=== PATIENT | male | born 1960 | race African-American/Black ===

== ENCOUNTER 2017-04-27 12:41 | Emergency (ER) | payer OTHER ==
[2017-04-27 12:45] VITALS: BP 158/108; BMI 39.1
[2017-04-27] MEDS ORDERED: CATAPRES TAB 0.1 MG ONE (13:35)
--- NOTE | 2017-04-27 13:55 | DR.GENAD ---
HPI - PCP Primary Care Physician: YUNIOR - Complaint/Symptoms Chief Complaint:: PATIENT STATED THAT HE HAS BEEN HAVING ABD. AND DARK STOOLS FOR 2 WEEKS. - Source History Provided: Patient - Mode of Arrival Mode of Arrival: Ambulatory - Timing Onset of Chief Complaint: 04/13/17 PMH - PMH Past Medical History: Yes Past Medical History: Hypertension Past Surgical History: Yes Surgical History: Abdominal Surgery, Ortho Surgery - Family History History of Family Medical Conditions: Yes Family Medical History: Cancer, Hypertension - Social History Does patient currently use any type of tobacco product: No Have you used tobacco products in the last 12 months: No Type of Tobacco Use: None Does any household member use tobacco: No Alcohol Use: None Do you use any recreational Drugs:: No Lives With: Family Lives Where: Home - infectious screening In the last 2 months have you had wt loss of >10#?: NO Have you had fever, night sweats or hemotysis?: No Have you traveled outside the country in the last 6 months?: No Isolation: Standard ROS - Review of Systems Eyes: No Symptoms Reported ENTM: No Symptoms Reported, Hearing Loss Respiratoy: No Symptoms Reported Cardiovascular: No Symptoms Reported Gastrointestinal/Abdominal: Abdominal Pain Genitourinary: No Symptoms Reported Neurological: No Symptoms Reported Musculoskeletal: No Symptoms Reported Integumentary: No Symptoms Reported Hematologic/Lymphatic: No Symptoms Reported Endocrine: No Symptoms Reported Psychiatric: No Symptoms Reported All Other Systems: Reviewed and Negative PE - Vital Signs Vitals: Temperature 98.1 F Pulse Rate 84 Respiratory Rate 20 Blood Pressure [Right Arm] 148/86 Blood Pressure [Left Arm] 146/83 Blood Pressure 158/108 O2 Sat by Pulse Oximetry 99 - General General Appearance: Alert, In No Apparent Distress - Head Head Exam: Normal Inspection, Atraumatic - Eyes Eye exam: Normal Appearance, PERRL, EOMI - ENT ENT Exam: Normal Exam External Ear Exam: Normal External Inspection TM/Canal Exam: Bilateral Normal Nose Exam: Normal Nose Exam Mouth Exam: Normal Inspection Throat Exam: Normal Inspection - Neck Neck Exam: Normal Inspection - Chest Chest Inspection: Normal Inspection, Symmetric Chest Wall Rise - Respiratory Respiratory Exam: Normal Lung Sounds Bilat Respiratory Exam: Bilateral Clear to Auscultation - Cardiovascular Cardiovascular Exam: Regular Rate, Normal Rhythm - Abdominal Exam Abdominal Exam: Normal Inspection, Normal Bowel Sounds Abdominal Tenderness: Epigastrium. negative: RUQ, RLQ, LUQ, LLQ, Suprapubic, Diffuse, Mild, Moderate, Severe, Other - Extremities Extremities Exam: Normal Inspection, Full ROM - Back Back Exam: Normal Inspection - Neurologic Neurological Exam: Alert, Oriented X3, CN II-XII Intact - Psychiatric Psychiatric Exam: Normal Affect - Skin Skin Exam: Warm, Dry, Intact - Other Exam Other Exam: Rectum hemocult negative Course - Reevaluation 1st: Improved ROR - Labs Reviewed Laboratory Results Reviewed?: Yes (H pylori positive) Result Diagrams: 04/27/17 15:15 04/27/17 15:15 Laboratory: WBC 6.9 X10^3/uL (3.6-10.0) 04/27/17 15:15 RBC 5.25 X10^6/uL (4.7-6.0) 04/27/17 15:15 Hgb 14.9 g/dL (13.5-18.0) 04/27/17 15:15 Hct 43.8 % (42.0-54.0) 04/27/17 15:15 MCV 83.4 fL (80.0-100.0) 04/27/17 15:15 MCH 28.4 pg (27.0-34.0) 04/27/17 15:15 MCHC 34.1 g/dL (33.0-35.0) 04/27/17 15:15 RDW 13.3 % (11.6-16.5) 04/27/17 15:15 Plt Count 265 X10^3/uL (150.0-450.0) 04/27/17 15:15 MPV 7.2 fL (7.4-11.0) L 04/27/17 15:15 Neut % 56.6 % (42.0-75.0) 04/27/17 15:15 Lymph % 32.2 % (21.0-51.0) 04/27/17 15:15 [place] % 10.0 % (0.0-13.0) 04/27/17 15:15 Eos % 0.6 % (0.9-2.9) L 04/27/17 15:15 Baso % 0.6 % (0.2-1.0) 04/27/17 15:15 Neut # 3.9 x10^3/uL (2.2-4.8) 04/27/17 15:15 Lymph # 2.2 X10^3/uL (1.3-2.9) 04/27/17 15:15 [place] # 0.7 x10^3/uL (0.3-0.8) 04/27/17 15:15 Eos # 0.0 x10^3/uL (0.0-0.2) 04/27/17 15:15 Baso # 0.0 X10^3/uL (0.0-0.1) 04/27/17 15:15 Absolute Nucleated RBC 0.1 /100WBC 04/27/17 15:15 Sodium 138 mmol/L (136-145) 04/27/17 15:15 Corrected Sodium TNP 04/27/17 15:15 Potassium 4.0 mmol/L (3.5-5.1) 04/27/17 15:15 Chloride 105 mmol/L (98-107) 04/27/17 15:15 Carbon Dioxide 27.7 mmol/L (21-32) 04/27/17 15:15 BUN 15 mg/dL (7-18) 04/27/17 15:15 Creatinine 1.33 mg/dL (0.70-1.30) H 04/27/17 15:15 Est GFR (MDRD) Af Amer > 60 (>60) 04/27/17 15:15 Est GFR (MDRD) Non-Af 59 (>60) 04/27/17 15:15 Glucose 105 mg/dL (65-99) H 04/27/17 15:15 Calcium 9.9 mg/dL (8.5-10.1) 04/27/17 15:15 Corrected Calcium TNP 04/27/17 15:15 Total Bilirubin 0.40 mg/dL (0.2-1.0) 04/27/17 15:15 AST 23 Units/L (15-37) 04/27/17 15:15 ALT 35 Units/L (12-78) 04/27/17 15:15 Alkaline Phosphatase 106 Units/L (46-116) 04/27/17 15:15 Total Protein 8.7 g/dL (6.4-8.2) H 04/27/17 15:15 Albumin 4.1 g/dL (3.4-5.0) 04/27/17 15:15 Globulin 4.6 g/dL (2.5-4.5) H 04/27/17 15:15 Albumin/Globulin Ratio 0.9 Ratio (1.1-2.1) L 04/27/17 15:15 Stool Description Fob tube 04/27/17 13:52 Stl Occult Blood (IFOB) Negative (NEGATIVE) 04/27/17 13:52 H. pylori IgG Antibody Positive (NEGATIVE) A 04/27/17 15:15 - XRAY XRAY Interpreted by: Radiologist (Acute Abdomen: No acute cardiopulmonary disease. No evidence for acute abdominal pathology identified.) - Diagnosis Discharge Problem: Helicobacter pylori gastritis, Encounter for Hemoccult screening - Discharge Plan Condition: Stable - Follow ups/Referrals Follow ups/Referrals: Cheikh Mcrae [Primary Care Provider] - 3 days - Instructions
[2017-04-27 15:28] LABS: BASOPHILS % (AUTO) 0.6 % (0.2-1.0); EOSINOPHILS % (AUTO) 0.6 % (0.9-2.9); HEMATOCRIT 43.8 % (42.0-54.0); HEMOGLOBIN 14.9 g/dL (13.5-18.0); LYMPHOCYTES # (AUTO) 2.2 X10^3/uL (1.3-2.9); LYMPHOCYTES % (AUTO) 32.2 % (21.0-51.0); MEAN CORPUSCULAR HEMOGLOBIN 28.4 pg (27.0-34.0); MEAN CORPUSCULAR HGB CONC 34.1 g/dL (33.0-35.0); MEAN CORPUSCULAR VOLUME 83.4 fL (80.0-100.0); MEAN PLATELET VOLUME 7.2 fL (7.4-11.0); MONOCYTES # (AUTO) 0.7 x10^3/uL (0.3-0.8); NEUTROPHILS # (AUTO) 3.9 x10^3/uL (2.2-4.8); NEUTROPHILS % (AUTO) 56.6 % (42.0-75.0); PLATELET COUNT 265 X10^3/uL (150.0-450.0); RED BLOOD COUNT 5.25 X10^6/uL (4.7-6.0); RED CELL DISTRIBUTION WIDTH 13.3 % (11.6-16.5); WHITE BLOOD COUNT 6.9 X10^3/uL (3.6-10.0)
--- NOTE | 2017-04-27 15:32 | RAD ---
HISTORY: Abdominal pain Study: Acute abdominal series Comparison: September 28, 2016 Findings: The trachea is midline. The cardiac silhouette is unremarkable. The lungs are clear without focal infiltrate or effusion. The bony thorax is unremarkable. Flat plate and upright evaluation of the abdomen demonstrates a normal bowel gas pattern. No pneumop eritoneum is identified.. No pathological soft tissue mass or calcification can be observed. The b rocío structures are grossly intact. IMPRESSION: 1. No acute cardiopulmonary disease. 2. No evidence for acute abdominal pathology identified. Reported By:
[2017-04-27 15:55] LABS: ALANINE AMINOTRANSFERASE 35 Units/L (12-78); ALBUMIN 4.1 g/dL (3.4-5.0); ALKALINE PHOSPHATASE 106 Units/L (46-116); ASPARTATE AMINO TRANSFERASE 23 Units/L (15-37); BLOOD UREA NITROGEN 15 mg/dL (7-18); CALCIUM 9.9 mg/dL (8.5-10.1); CARBON DIOXIDE 27.7 mmol/L (21-32); CHLORIDE 105 mmol/L (98-107); CREATININE 1.33 mg/dL (0.70-1.30); GLUCOSE 105 mg/dL (65-99); SODIUM 138 mmol/L (136-145); TOTAL PROTEIN 8.7 g/dL (6.4-8.2); eGFR BLACK RACES > 60 (>60); eGFR NON BLACK RACES 59 (>60)
[2017-04-27 16:26] LABS: ERYTHROCYTE SEDIMENTATION RATE 20 MM/HOUR (0-15)
== END 2017-04-27 16:24 | disposition home or self-care (01) ==
LOC: ER 13:08
DX: R10.13 Epigastric pain (principal); B96.81 Helicobacter pylori [H. pylori] as the cause of diseases classified elsewhere; Z13.9 Encounter for screening, unspecified
CPT/HCPCS: 36415; 74022; 80053; 82270; 85025; 85652; 86677; 99282

== ENCOUNTER 2017-06-16 07:09 | Day surgery (SDC) | payer OTHER ==
[2017-06-16] MEDS ORDERED: D5 LR 1000 ML 1,000 ML IV ONE (07:23)
[2017-06-16] MEDS ORDERED: DIPRIVAN VIAL 20 ML ONE ×2 (09:17→09:42)
[2017-06-16 10:13] VITALS: BP 122/72
== END 2017-06-16 10:16 | disposition home or self-care (01) ==
LOC: SURG1 07:09
PROVIDERS: ATTEND Internal Medicine Gastroenterology
PROC: 0DJD8ZZ Inspection of Lower Intestinal Tract, Via Natural or Artificial Opening Endoscopic (ICD-10-PCS; principal; 2017-06-16 09:00)
PROC: 0DBL8ZX Excision of Transverse Colon, Via Natural or Artificial Opening Endoscopic, Diagnostic (ICD-10-PCS; principal; 2017-06-16 09:00)
PROC: 0DBN8ZX Excision of Sigmoid Colon, Via Natural or Artificial Opening Endoscopic, Diagnostic (ICD-10-PCS; principal; 2017-06-16 09:00)
DX: Z12.11 Encounter for screening for malignant neoplasm of colon (principal); K64.0 First degree hemorrhoids; K63.5 Polyp of colon; D12.5 Benign neoplasm of sigmoid colon; D12.3 Benign neoplasm of transverse colon
CPT/HCPCS: A4217; J3490; J7120

== ENCOUNTER → 2017-10-03 | Outpatient (CLI) | payer OTHER ==
--- NOTE | 2017-10-03 10:00 | RAD ---
Examination: Chest, PA and lateral views History: Preop Comparison reference: 04/27/2017 Findings: Continued normal heart size with clear lungs and pleural spaces. Surgical hardware is noted in the spine at the cervicothoracic junction. Impression: No change; no acute disease. Reported By:
[2017-10-03 10:28] LABS: BASOPHILS % (AUTO) 0.5 % (0.2-1.0); EOSINOPHILS # (AUTO) 0.1 x10^3/uL (0.0-0.2); HEMATOCRIT 43.9 % (42.0-54.0); HEMOGLOBIN 14.6 g/dL (13.5-18.0); LYMPHOCYTES # (AUTO) 1.7 X10^3/uL (1.3-2.9); LYMPHOCYTES % (AUTO) 37.8 % (21.0-51.0); MEAN CORPUSCULAR HGB CONC 33.3 g/dL (33.0-35.0); MEAN PLATELET VOLUME 7.8 fL (7.4-11.0); MONOCYTES # (AUTO) 0.5 x10^3/uL (0.3-0.8); NEUTROPHILS # (AUTO) 2.3 x10^3/uL (2.2-4.8); NEUTROPHILS % (AUTO) 49.7 % (42.0-75.0); PLATELET COUNT 231 X10^3/uL (150.0-450.0); RED BLOOD COUNT 5.23 X10^6/uL (4.7-6.0); WHITE BLOOD COUNT 4.5 X10^3/uL (3.6-10.0)
[2017-10-03 10:35] LABS: ALANINE AMINOTRANSFERASE 28 Units/L (12-78); ALBUMIN 3.6 g/dL (3.4-5.0); ALKALINE PHOSPHATASE 89 Units/L (46-116); ASPARTATE AMINO TRANSFERASE 23 Units/L (15-37); BLOOD UREA NITROGEN 18 mg/dL (7-18); CALCIUM 9.6 mg/dL (8.5-10.1); CARBON DIOXIDE 29.3 mmol/L (21-32); CHLORIDE 105 mmol/L (98-107); COR NA(FOR HYPERGLY) 143 mmol/L (136-145); CREATININE 1.55 mg/dL (0.70-1.30); SODIUM 142 mmol/L (136-145); TOTAL PROTEIN 7.7 g/dL (6.4-8.2); eGFR BLACK RACES 60 (>60); eGFR NON BLACK RACES 49 (>60)
== END ==
LOC: LAB 09:37
PROVIDERS: ATTEND Podiatrist
DX: Z01.818 Encounter for other preprocedural examination (principal); Z01.810 Encounter for preprocedural cardiovascular examination; Z01.811 Encounter for preprocedural respiratory examination; Z01.812 Encounter for preprocedural laboratory examination; M72.2 Plantar fascial fibromatosis
CPT/HCPCS: 36415; 71020; 80053; 85002; 85025; 93005; 93010